=== PATIENT | male | born 1960 ===

== ENCOUNTER 2021-02-02 08:29 | Day surgery (SDC) | payer OTHER | END 2021-02-02 14:55 | disposition home or self-care (01) | LOC: AMB-ENDOS 08:29 | PROVIDERS: ATTEND Colon & Rectal Surgery | DX: K62.89 Other specified diseases of anus and rectum (principal); K64.1 Second degree hemorrhoids; Z20.822 Contact with and (suspected) exposure to COVID-19 ==

== ENCOUNTER 2021-08-09 13:47 | Emergency (ER) | payer OTHER ==
[~2021-08-09] VITALS: Ht 188 cm; Wt 102.1 kg
[2021-08-09] MEDS ORDERED: HYZAAR 100-12.1 EACH PO (14:40)
[2021-08-09] MEDS ORDERED: NIFEDIPINE20 MG PO (14:41)
[2021-08-09] MEDS ORDERED: LEXAPRO20 MG PO (14:41)
[2021-08-09] MEDS ORDERED: ECOTRIN81 MG (14:56)
[2021-08-09] MEDS ORDERED: B-12500 MCG (14:56)
[2021-08-09] MEDS ORDERED: VITAMIN D350 MCG PO (14:57)
== END 2021-08-09 19:03 | disposition home or self-care (01) ==
LOC: ER 13:47
DX: U07.1 COVID-19 (principal); R55 Syncope and collapse; I10 Essential (primary) hypertension